=== PATIENT | male | born 1995 | race Caucasian/White ===

== ENCOUNTER 2021-04-11 20:11 | Emergency (ER) | payer OTHER ==
[~2021-04-11] VITALS: Ht 210.8 cm; Wt 81.7 kg
[2021-04-11] MEDS ORDERED: HYDROXYZINE HCL25 M2 PO (21:04)
[2021-04-11 21:11] VITALS: BP 115/73
== END 2021-04-11 21:12 | disposition home or self-care (01) ==
LOC: M.ERS 20:11
DX: F41.9 Anxiety disorder, unspecified (principal); R19.7 Diarrhea, unspecified; R00.2 Palpitations; R11.0 Nausea; R42 Dizziness and giddiness